=== PATIENT | male | born 1945 | race Two or more races ===

== ENCOUNTER 2020-08-22 21:32 | Emergency (ER) | payer OTHER ==
[~2020-08-22] VITALS: Ht 170.2 cm; Wt 81.0 kg
[2020-08-22 21:34] VITALS: BP 180/100
== END 2020-08-22 22:07 | disposition home or self-care (01) ==
LOC: ER 21:32
DX: E11.649 Type 2 diabetes mellitus with hypoglycemia without coma (principal); I10 Essential (primary) hypertension; Z79.4 Long term (current) use of insulin
CPT/HCPCS: 82962; 93005; 99283